=== PATIENT | female | born 1975 | race Two or more races ===

== ENCOUNTER 2024-07-16 14:21 | Emergency (ER) | payer MEDICAID, SELFPAY ==
[2024-07-16 14:36] VITALS: BP 147/82; PULSE 92; RESP 18; TEMP 36.5; O2SAT 96; BMI 32.8
--- NOTE | 2024-07-16 14:41 | EDNOTE_ITS ---
ED Wound/Laceration-RME/HPI General Chief Complaint: Wound/Laceration Stated Complaint: RIGHT HAND LACERATION GRABBING KNIFE Time Seen by Provider: 07/16/24 14:35 Source: patient Arrival date/time: 07/16/24 14:21 49-year-old female presents emergency department complaining of laceration to palm of right hand that occurred with a kitchen knife. Patient reports is up-to-date with tetanus vaccine within the last 5 years. Mode of arrival: ambulatory Limitations: no limitations Related Data Home Medications ?Medication ?Instructions ?Recorded ?Confirmed cyclobenzaprine 10 mg tablet 10 mg PO QDAY PRN Spasms 10/02/19 05/27/22 Previous Rx's ?Medication ?Instructions ?Recorded omeprazole 20 mg capsule,delayed 20 mg PO BID #60 caps 03/30/22 release aspirin 81 mg chewable tablet 81 mg PO QDAY #30 tabs 05/29/22 famotidine 20 mg tablet 20 mg PO QDAY #30 tabs 04/10/24 Allergies Allergy/AdvReac Type Severity Reaction Status Date / Time ceftriaxone Allergy Severe THROAT Verified 07/16/24 14:23 CLOSES Cephalosporins Allergy Severe THROAT Verified 07/16/24 14:23 CLOSES lorazepam [From Ativan] Allergy Severe Swelling Verified 07/16/24 14:23 of Lip/Tongue/Throat Review of Systems Review of Systems Systems Reviewed: All systems reviewed, normal except as documented Constitutional Constitutional: Reports system reviewed and no additional complaints, except as documented, Denies body ache(s), Denies chills and Denies fever(s) Eyes Eyes: Reports system reviewed and no additional complaints, except as documented and Denies change in vision ENT Ears, Nose, Mouth, and Throat: Reports system reviewed and no additional complaints, except as documented, Denies disequilibrium, Denies dizziness, Denies sore throat and Denies vertigo Cardiovascular Cardiovascular: Reports system reviewed and no additional complaints, except as documented, Denies chest pain and Denies dyspnea Respiratory Respiratory: Reports system reviewed and no additional complaints, except as documented, Denies chest congestion, Denies cough and Denies dyspnea Gastrointestinal Gastrointestinal: Reports system reviewed and no additional complaints, except as documented, Denies abdominal pain, Denies nausea and Denies vomiting Musculoskeletal Musculoskeletal: Reports system reviewed and no additional complaints, except as documented, Denies abnormal gait and Denies arthralgias Integumentary/Breasts Skin/Breast: Reports system reviewed and no additional complaints, except as documented, Denies erythema, Denies rash and Reports wounds (laceration) Neurologic Neurologic: Reports system reviewed and no additional complaints, except as documented, Denies abnormal gait, Denies disequilibrium, Denies dizziness and Denies vertigo Past Medical History Past Medical History NEUROLOGIC: Positive Neurological Disorders and Transient Ischemic Attacks (TIA); Negative Seizures CARDIAC: Positive Cardiac Disorders and Hypertension; Negative Congestive Heart Failure RESPIRATORY: Positive Pneumonia; Negative Chronic Obstructive Pulmonary Disease (COPD) or Asthma GASTROINTESTINAL: Positive Gastrointestinal Disorders, Ulcer and Gastroesophageal Reflux Disease GENITOURINARY: Negative Genitourinary Disorders, Renal Disease or Kidney Stones REPRODUCTIVE: Positive Previous Pregnancies MUSCULOSKELETAL: Positive Musculoskeletal Disorders, Arthritis and Fibromyalgia ENT: Negative Cataracts ENDOCRINE: Negative Endocrine Disorders, Diabetes Mellitus Type 1 or Diabetes Mellitus Type 2 HEMATOLOGIC: Positive Anemia; Negative Sickle Cell Disease PSYCHO/SOCIAL: Negative Depression or Anxiety OTHER HISTORY: Positive Blood Transfusions and Chicken Pox; Negative Autoimmune Disease, Anesthesia Reactions, Measles, Mumps or Cancer Surgical History SURGICAL: Positive Valve Replacement, Abdominal Surgery and Hysterectomy; Negative Section Social History SMOKING STATUS: Never smoker SUBSTANCE USE: does not use ED Exam General Limitations: Present no limitations General appearance: Present alert and in no apparent distress Head Head exam: Present atraumatic Eye Eye exam: Present normal appearance, PERRL and EOMI ENT ENT exam: Present normal exam, normal oropharynx and mucous membranes moist Neck Neck exam: Present normal inspection, full ROM and trachea midline Chest Chest inspection: Present normal inspection and symmetric chest wall rise Respiratory Respiratory exam: Present normal lung sounds bilaterally Cardiovascular Cardiovascular exam: Present regular rate, normal rhythm and normal heart sounds Abdominal Exam Abdominal exam: Present soft and normal bowel sounds Extremities Exam Extremities exam: Present normal inspection and full ROM Expanded Upper Extremity Exam Hand L/R front image: 2 1. laceration (1 cm laceration ) Back Exam Back exam: Present normal inspection and full ROM Neurological Exam Neurological exam: Present alert, oriented X3 and CN II-XII intact Psychiatric Psychiatric exam: Present normal affect and normal mood Skin Skin exam: Present warm and dry Course Quality Measures none Orders Category Date Time Status Set Up Suture Tray STAT Care 07/16/24 14:41 Completed Wound Care [Wound Care] NOW Care 07/16/24 14:41 Completed Lidocaine 1% 20 ml [Xylocaine 1% 20 ML] Med 07/16/24 14:41 Discontinued 20 ml INFL X1 ONE Vital Signs Vital signs: Vital Signs Temperature 97.7 F 07/16/24 14:36 Pulse Rate 92 07/16/24 14:36 Respiratory Rate 18 07/16/24 14:36 Blood Pressure 147/82 H 07/16/24 14:36 Pulse Oximetry (%) 96 07/16/24 14:36 Oxygen Delivery Method Room Air 07/16/24 14:36 96% RA WNL. Procedures -ED Laceration Laceration 1: Site: hand Side (If applicable): right Size (cm): 1 Description: linear Depth: simple, single layer Local Anesthetic: lidocaine 1% Amount of anesthesia used (mL): 1 Pre-repair: wound explored and irrigated extensively Skin layer closed with: nylon Size (cm): 5-0 Number of sutures: 1 Technique: simple, interrupted Wound / Laceration MDM Narrative MDM Narrative:: 49-year-old female presents emergency department complaining of laceration to palm of right hand that occurred with a kitchen knife. Patient reports is up-to-date with tetanus vaccine within the last 5 years. Wound irrigated with NS. 1cm linear laceration approximated with one simple interrupted suture 5-0 ethilon using 1ml 1% lidocaine local anaesthetic. Patient tolerated well. no active bleeding or tendon involvement. Patient data External records reviewed:: [facility] previous records Clinical information provided by:: patient Social determinants that could affect healthcare access:: none Patient has the following chronic illnesses:: see chart How is presenting disease/condition affected by chronic disease/condition?: u neffected by Evaluation data The following diagnostics were reviewed and interpreted by me:: other (specify) (n/a) Lab and/or radiology exams considered but not ordered:: ordered Interpretation Summary: interpreted by me Medications / Prescriptions Medications or Prescriptions considered but not ordered:: ordered Medication administrations:: Medication Administration History Discontinued Medications Lidocaine HCl (Lidocaine Hcl 1% 20 Ml Vial) 20 ml INFL X1 ONE Stop: 07/16/24 14:42 Last Admin: 07/16/24 14:45 Dose: 20 ml Documented By: given Consultations Consultation(s) initiated? (list below): No Diagnosis Wound Differential Diagnosis: laceration Most likely diagnosis given after review of the tests above:: laceration of hand Admission Indicated Admission indicated?: not indicated Admission Request Was there a request for admission?: No Disposition Plan Disposition Plan: Discharge Discharge Attestation Discharge Attestation: The patient and all family members were given an opportunity to ask questions and understood the discharge instructions. Discharge instructions specifically effects, indications for sooner follow up or return to the emergency department, and the expected course of current diagnosis. Patient condition: Stable Discharge Plan Plan Patient Disposition: HOME (Self Care) Disposition Comment: Stable Prescriptions/Referrals Prescriptions/Med Rec: No Action cyclobenzaprine 10 mg Tablet 10 mg PO QDAY PRN (Reason: Spasms) omeprazole 20 mg capsule,delayed release(DR/EC) 20 mg PO BID Qty: 60 0RF aspirin 81 mg tablet,chewable 81 mg PO QDAY Qty: 30 0RF famotidine 20 mg tablet 20 mg PO QDAY Qty: 30 1RF Referrals: Juwan Guevara MD [Primary Care Provider] - In 1 week Problem List Clinical Impression: Laceration of hand Patient/Caregiver Discharge Instructions Discharge Activity: activity as tolerated Education Materials: ED Laceration, Hand: All Closures Additional Instructions: Keep dressing on for the first 24 hours and keep open to air dry and clean after no active bleeding. Follow-up with primary care provider or return to emergency department in 7 days for suture removal. Return to the emergency department for any signs of infection or worsening symptoms. Print Language: Salvadorean Stand Alone Forms: Yara Award Info., Patient Portal Info Letter JACKIE/LUZMARIA Supervising Physician JACKIE/LUZMARIA Supervising Physician: Dr. Oliver
[2024-07-16] MEDS: LIDOCAINE HCL 1% 20 ML VIAL INFL (14:45)
== END 2024-07-16 15:35 | disposition home or self-care (01) ==
PROVIDERS: Emergency Provider Emergency Medicine; PCP Obstetrics & Gynecology
DX: S61.411A Laceration without foreign body of right hand, initial encounter (principal); W26.0XXA Contact with knife, initial encounter
CPT/HCPCS: 12001; 99283; J3490

== ENCOUNTER 2025-02-10 21:13 | Emergency (ER) | payer MEDICAID, SELFPAY ==
[2025-02-10 21:14] VITALS: BMI 32.7
--- NOTE | 2025-02-10 21:23 | EKG_ITS ---
[facility] Test Date: 2025-02-10 Pat Name: NEELIMA NEW Department: Room: - Gender: Female [employer] Member: : 1975 Requested By: ED Temporary Provider Order Number: [id number] Reading MD: ED Temporary Provider Measurements Intervals [place] Rate: 67 P: 54 NC: 172 QRS: 25 QRSD: 84 T: 78 QT: 373 QTc: 396 Interpretive Statements SINUS RHYTHM NONSPECIFIC T-WAVE ABNORMALITY Compared to ECG 04/10/2024 16:33:25 No significant changes /store/S0/[id number]/ecg/[id number].pdf
[2025-02-10 21:36] VITALS: BP 143/91; PULSE 71; RESP 20; TEMP 36.5; O2SAT 97
--- NOTE | 2025-02-10 21:49 | XR_ITS ---
Examination: AP chest single view Technique portable AP chest single view Date and time: February 10, 2025 2155 hours Comparison April 10, 2024 INDICATIONS: Chest pain and shortness of breath coughing beginning 2 days ago. FINDINGS: Normal heart size Minor atelectasis left base No lobar pneumonia or pulmonary edema IMPRESSION: No interval lobar pneumonia or pulmonary edema
--- NOTE | 2025-02-10 21:50 | EDRME_ITS ---
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 Last week patient was found to have PNA and was given some ABX, but patient stopped taking it because it hurt her stomach. Chief Complaint: Chest Pain Vital signs: Vital Signs Temperature 97.7 F 02/10/25 21:36 Pulse Rate 71 02/10/25 21:36 Respiratory Rate 20 02/10/25 21:36 Blood Pressure 143/91 H 02/10/25 21:36 Pulse Oximetry (%) 97 02/10/25 21:36 Oxygen Delivery Method Room Air 02/10/25 21:36
[2025-02-10] MEDS: Aspirin 325 MG TABLET PO (22:34)
[2025-02-10 22:42] LABS: Basophils # (Auto) 0.1 Thou/mm3 (0.0-0.2); Basophils % (Auto) 0 % (0-2.5); Eosinophils # (Auto) 0.1 Thou/mm3 (0.0-0.5); Eosinophils % (Auto) 1 % (0-10); Hematocrit 40.7 % (36.0-46.0); Hemoglobin 13.6 g/dL (12.0-16.0); Immature Granulocytes % (Auto) 0 % (0-0); Immature Granulocytes Auto 0.02 Thou/mm3 (0.00-0.00); Lymphocytes # (Auto) 4.6 Thou/mm3 (1.0-4.8); Lymphocytes % (Auto) 35 % (10-50); Mean Corpuscular HGB Conc 33.4 g/dl (31.0-37.0); Mean Corpuscular Hemoglobin 30.6 pg (25.0-35.0); Mean Corpuscular Volume 92 fL (80-100); Monocytes # (Auto) 0.8 Thou/mm3 (0.0-0.8); Monocytes % (Auto) 7 % (0-12); Neutrophils # (Auto) 7.4 Thou/mm3 (1.8-7.7); Neutrophils % (Auto) 57 % (37-80); Nucleated Red Blood Cell % 0 /100 WBC (0); Platelet Count 310 Thou/mm3 (140-440); RDW Standard Deviation 46.2 fL (36.4-46.3); Red Blood Count 4.45 Miln/mm3 (4.00-5.20)
[2025-02-10 23:02] LABS: B-Type Natriuretic Peptide < 20 pg/mL (0-100)
[2025-02-10 23:03] LABS: Alanine Aminotransferase 12 U/L (10-49); Albumin, Serum 4.3 gm/dL (3.5-5.0); Alkaline Phosphatase 100 U/L (46-116); Anion Gap 8 (7-16); Aspartate Amino Transferase 14 U/L (0-34); BUN/Creatinine Ratio 16 Ratio (12-20); Bilirubin,Total 0.5 mg/dL (0.3-1.2); Blood Urea Nitrogen 14 mg/dL (9-23); Calcium 9.9 mg/dL (8.3-10.6); Calcium (Corrected) 9.9 mg/dL (8.5-10.1); Carbon Dioxide 28.8 mMol/L (20.0-31.0); Chloride 102 mMol/L (98-107); Creatinine (Component) 0.9 mg/dL (0.6-1.3); Estimated Creatinine Clearance 86.4 mL/min (>60); Globulin 2.2 gm/dL (2.3-3.5); Glucose 103 mg/dL (74-106); Osmolality,Calculated 278 (275-295); Potassium 4.5 mMol/L (3.4-5.1); Sodium 139 mMol/L (136-145); Total Protein 6.5 gm/dL (5.7-8.2); Troponin I < 0.002 ng/mL (0.0-0.045); eGFR > 60 See Note
[2025-02-10 23:05] LABS: Partial Thromboplastin Time 28.6 Seconds (22.0-36.0); Prothrombin Time 10.6 Seconds (9.0-12.2)
[2025-02-11 02:30] LABS: Troponin I < 0.002 ng/mL (0.0-0.045)
[2025-02-11 02:39] LABS: D-Dimer < 250 ng/mL (<600)
--- NOTE | 2025-02-11 03:23 | PD.EDCHEST ---
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 Last week patient was found to have PNA and was given some ABX, but patient stopped taking it because it hurt her stomach. DR QUINTERO MAIN ED EVALUATION: 50 y/o female with Hx of HTN, Ulcer, GERD, and PNA presents to ED c/o centralized chest pain that radiates to the back and shortness of breath x just [employer]. Patient was recently diagnosed with PNA and prescribed medication, but patient did not complete the regimen due to it upsetting her stomach. Patient denies fever or any other associated symptoms or aggravating factors. No modifying factors, no radiation, no migration. No pain reported overall. Related Data Home Medications ?Medication ?Instructions ?Recorded ?Confirmed cyclobenzaprine 10 mg tablet 10 mg PO QDAY PRN Spasms 10/02/19 05/27/22 Previous Rx's ?Medication ?Instructions ?Recorded omeprazole 20 mg capsule,delayed 20 mg PO BID #60 caps 03/30/22 release aspirin 81 mg chewable tablet 81 mg PO QDAY #30 tabs 05/29/22 famotidine 20 mg tablet 20 mg PO QDAY #30 tabs 04/10/24 Allergies Allergy/AdvReac Type Severity Reaction Status Date / Time ceftriaxone Allergy Severe THROAT Verified 02/10/25 21:22 CLOSES Cephalosporins Allergy Severe THROAT Verified 02/10/25 21:22 CLOSES lorazepam (From Ativan) Allergy Severe Swelling Verified 02/10/25 21:22 of Lip/Tongue/Throat Review of Systems Review of Systems Systems Reviewed: All systems reviewed, normal except as documented Past Medical History Past Medical History NEUROLOGIC: Positive Neurological Disorders and Transient Ischemic Attacks (TIA) CARDIAC: Positive Cardiac Disorders and Hypertension RESPIRATORY: Positive Pneumonia GASTROINTESTINAL: Positive Gastrointestinal Disorders, Ulcer and Gastroesophageal Reflux Disease REPRODUCTIVE: Positive Previous Pregnancies MUSCULOSKELETAL: Positive Musculoskeletal Disorders, Arthritis and Fibromyalgia HEMATOLOGIC: Positive Anemia OTHER HISTORY: Positive Blood Transfusions and Chicken Pox Surgical History SURGICAL: Positive Valve Replacement, Abdominal Surgery and Hysterectomy ED Exam Narrative Physical exam: GENERAL APPEARANCE: alert and oriented x 4, well-developed, well-nourished, no acute distress VITALS: All vitals were reviewed and the pulse ox is 97% on room air, which is normal according to my interpretation. HEENT: Normocephalic, atraumatic; pupils equal, round, reactive to light; EOMI; mucous membranes pink, moist; oropharynx clear NECK: Supple LUNGS: CTABL; no wheezes, no rales, no rhonchi HEART: Regular rate, regular rhythm; normal S1, S2; no murmurs ABDOMEN: non distended; normal BS; soft, no tenderness, no guarding, no rebound; no masses, no organomegaly, no hernia BACK: no CVA tenderness EXTREMITIES: atraumatic; no edema NEUROLOGIC: awake; alert and oriented x4; cranial nerves II-XII grossly intact; no focal sensory or motor deficits PSYCHIATRIC: appropriate mood and affect SKIN: warm, dry, normal color; no rashes Course Course Course Narrative: CXR is ordered for determining the etiology of shortness of breath. Quality Measures none Orders Category Date Time Status EKG (ED ONLY) *Do not use* NOW Care 02/10/25 21:23 Completed EKG (ED Only) Stat Exams 02/10/25 21:23 Draft XR chest 1V portable Stat Exams 02/10/25 21:49 Completed B-Type Natriuretic Peptide Stat Lab 02/10/25 22:30 Completed CBC Stat Lab 02/10/25 22:30 Completed Comprehensive Metabolic Panel Stat Lab 02/10/25 22:30 Completed D-Dimer Stat Lab 02/11/25 01:39 Completed Partial Thromboplastin Time Stat Lab 02/10/25 22:30 Completed Prothrombin Time with INR Stat Lab 02/10/25 22:30 Completed Troponin I Stat Lab 02/10/25 22:30 Completed Troponin I Stat Lab 02/11/25 01:31 Completed Aspirin Med 02/10/25 21:49 Discontinued 325 mg PO X1 ONE Vital Signs Vital signs: Vital Signs Temperature 97.7 F 02/10/25 21:36 Pulse Rate 71 02/10/25 21:36 Respiratory Rate 20 02/10/25 21:36 Blood Pressure 143/91 H 02/10/25 21:36 Pulse Oximetry (%) 97 02/10/25 21:36 Oxygen Delivery Method Room Air 02/10/25 21:36 Chest Pain MDM Narrative MDM Narrative:: Scribe Attestation: I, Zahira Duncan, am scribing for and in the presence of Dr. Quintero. Provider Notation: Although this document has been carefully reviewed, there may still be some phonetic and other typographical errors.? These errors are purely grammatical due to imperfections in the software program and should not be construed in any way to? compromise the substance of the patient's medical care during this visit. Patient data External records reviewed:: [facility] previous records (Reviewed prior ED records from 07/16/24. Patient was seen for Laceration of hand.) Clinical information provided by:: patient Social determinants that could affect healthcare access:: none Patient has the following chronic illnesses:: Hypertension, Ulcer, Gastroesophageal Reflux Disease, Arthritis and Fibromyalgia How is presenting disease/condition affected by chronic disease/condition?: exacerbated by Evaluation data The following diagnostics were reviewed and interpreted by me:: lab results, radiology exam(s) and EKG tracing(s) (2136: EKG manual reading, my interpretation: sinus rhythm, rate: 67 bpm, no ST elevation, no acute ischemic changes, interpreted as normal.) Lab and/or radiology exams considered but not ordered:: None Interpretation Summary: RADIOLOGY Chest X-Ray: Patient: NEELIMA NEW Record#: [id number] Birthdate: 1975 Age/Sex: 50 / F Location: [facility] Attending Dr: Ordering Physician: Xavier Carpio PA-C Date of Service: 02/10/25 Procedure(s): XR chest 1V portable Accession Number(s): [id number] cc: Martín Cunningham MD; Xavier Carpio PA-C~ Examination: AP chest single view Technique portable AP chest single view Date and time: February 10, 2025 2155 hours Comparison April 10, 2024 INDICATIONS: Chest pain and shortness of breath coughing beginning 2 days ago. FINDINGS: Normal heart size Minor atelectasis left base No lobar pneumonia or pulmonary edema IMPRESSION: No interval lobar pneumonia or pulmonary edema Dictated By: Martín Cunningham MD Signed By: <Electronically signed by Martín Cunningham MD in OV> 02/10/25 2211 Medications / Prescriptions Medications or Prescriptions considered but not ordered:: None Medication administrations:: Medication Administration History Discontinued Medications Aspirin (Aspirin 325 Mg Tablet) 325 mg PO X1 ONE Stop: 02/10/25 21:50 Last Admin: 02/10/25 22:34 Dose: 325 mg Documented By: MOHSEN See above Consultations Consultation(s) initiated? (list below): No Diagnosis Chest Pain Differential Diagnosis: pneumothorax, stable angina, unstable angina pectoris, atypical chest pain, st elevation myocardial infarction, costochondritis, chest pain and biliary colic Most likely diagnosis given after review of the tests above:: Pleurisy, pleuritic chest pain Admission Indicated Admission indicated?: not indicated Explain why admission is indicated or not indicated:: Patient does not meet admission criteria. Admission Request Was there a request for admission?: No Disposition Plan Disposition Plan: Discharge Discharge Attestation Discharge Attestation: The patient and all family members were given an opportunity to ask questions and understood the discharge instructions. Discharge instructions specifically effects, indications for sooner follow up or return to the emergency department, and the expected course of current diagnosis. Patient condition: Stable Discharge Plan Plan Patient Disposition: HOME (Self Care) Prescriptions/Referrals Prescriptions/Med Rec: No Action cyclobenzaprine 10 mg Tablet 10 mg PO QDAY PRN (Reason: Spasms) omeprazole 20 mg capsule,delayed release(DR/EC) 20 mg PO BID Qty: 60 0RF aspirin 81 mg tablet,chewable 81 mg PO QDAY Qty: 30 0RF famotidine 20 mg tablet 20 mg PO QDAY Qty: 30 1RF Referrals: Elizabeth Pedersen PA-C [Primary Care Provider] - In 1 week Problem List Clinical Impression: Pleuritic chest pain, Pleurisy Patient/Caregiver Discharge Instructions Education Materials: ED Chest Pain, Uncertain Cause, ED Pleurisy Print Language: Lao Stand Alone Forms: Yara Award Info., Patient Portal Info Letter
== END 2025-02-11 05:48 | disposition home or self-care (01) ==
PROVIDERS: Physician Assistant; Emergency Provider Emergency Medicine; PCP Physician Assistant
DX: R07.81 Pleurodynia (principal); R09.1 Pleurisy; R06.02 Shortness of breath; R05.9 Cough, unspecified; I10 Essential (primary) hypertension
CPT/HCPCS: 36415; 71045; 80053; 83880; 84484; 85025; 85379; 85610; 85730; 93005; 99283; A9270